=== PATIENT | male | born 1950 | race African-American/Black ===

== ENCOUNTER 2017-03-10 12:27 | Emergency (ER) | payer MEDICAID, OTHER ==
[~2017-03-10] VITALS: Ht 172.7 cm; Wt 80.0 kg
[2017-03-10 14:10] LABS: BASOPHILS % 0.7 % (0.0-2.0); EOSINOPHILS % 1.3 % (0.0-5.0); HEMATOCRIT. 30.6 % (42.0-52.0); LYMPHOCYTES % 25.1 % (20.0-50.0); MEAN CORPUSCULAR HEMOGLOBIN 28.3 pg (28.0-32.0); MEAN CORPUSCULAR VOLUME 86.9 fL (80.0-94.0); MEAN PLATELET VOLUME 6.8 fl (7.4-10.4); MONOCYTES % 10.4 % (2.0-8.0); NEUTROPHILS % 62.5 % (40.0-76.0); PLATELET 203 x1000/uL (130-400); RED BLOOD CELL COUNT 3.52 mill/uL (4.7-6.1); RED CELL DISTRIBUTION WIDTH 15.1 % (11.6-14.6)
[2017-03-10 14:23] LABS: CARBON DIOXIDE 26 mEq/L (21-32); CHLORIDE 110 mEq/L (98-107); TROPONIN I < 0.02 ng/mL (0.00-0.04)
[2017-03-10 14:55] LABS: *AMPHETAMINES SCREEN URINE NEGATIVE (NEGATIVE); *BARBITURATES SCREEN URINE NEGATIVE (NEGATIVE); *BENZODIAZEPINES SCREEN URINE NEGATIVE (NEGATIVE); *COCAINE SCREEN URINE NEGATIVE (NEGATIVE); CANNABINOID URINE SCREEN NEGATIVE (NEGATIVE); METHADONE URINE SCREEN NEGATIVE (NEGATIVE); OPIATES URINE SCREEN NEGATIVE (NEGATIVE); PHENCYCLIDINE URINE SCREEN NEGATIVE (NEGATIVE)
[2017-03-10 14:57] LABS: INR 1.1; PROTHROMBIN TIME 10.9 sec
[2017-03-10 17:12] VITALS: BP 132/77
== END 2017-03-10 17:14 | disposition home or self-care (01) ==
LOC: EDBD 12:48 → ER 12:48
DX: R07.9 Chest pain, unspecified (principal)
CPT/HCPCS: 36415; 71010; 80048; 80305; 83880; 84484; 85025; 85610; 93005; 99285; Z7610

== ENCOUNTER 2017-06-16 11:01 | Emergency (ER) | payer MEDICARE, MEDICAID ==
[~2017-06-16] VITALS: Ht 170.2 cm; Wt 76.0 kg
[2017-06-16] MEDS ORDERED: ONDANSETRON HCL 4MG/2ML VIAL IV ONE (12:00)
[2017-06-16] MEDS ORDERED: SODIUM CHLORIDE 0.9% 1,000 ML IV ONE (12:00)
[2017-06-16] MEDS ORDERED: FAMOTIDINE 20MG/2ML VIAL IV ONE (12:00)
[2017-06-16 12:36] LABS: BASOPHILS % 0.5 % (0.0-2.0); EOSINOPHILS % 1.5 % (0.0-5.0); HEMATOCRIT. 32.3 % (42.0-52.0); HEMOGLOBIN. 10.5 g/dL (14.0-18.0); MEAN CORPUSCULAR HEMOGLOBIN 29.5 pg (28.0-32.0); MEAN CORPUSCULAR VOLUME 90.4 fL (80.0-94.0); MEAN PLATELET VOLUME 7.2 fl (7.4-10.4); MONOCYTES % 14.3 % (2.0-8.0); NEUTROPHILS % 67.7 % (40.0-76.0); PLATELET 210 x1000/uL (130-400); RED BLOOD CELL COUNT 3.57 mill/uL (4.7-6.1); RED CELL DISTRIBUTION WIDTH 13.7 % (11.6-14.6)
[2017-06-16 12:39] LABS: CHLORIDE 109 mEq/L (98-107)
[2017-06-16 12:45] LABS: CARBON DIOXIDE 28 mEq/L (21-32)
[2017-06-16 14:40] LABS: CLARITY URINE CLOUDY (CLEAR); COLOR URINE YELLOW (YELLOW); GLUCOSE URINE NEGATIVE (NEGATIVE); KETONES URINE NEGATIVE (NEGATIVE); LEUKOCYTE ESTERASE URINE 2+ (NEGATIVE); NITRITE URINE NEGATIVE (NEGATIVE); OCCULT BLOOD URINE NEGATIVE (NEGATIVE); PH URINE 6.5 (4.5-8.0); PROTEIN URINE TRACE (NEGATIVE)
[2017-06-17 10:40] VITALS: BP 136/53
== END 2017-06-17 10:40 | disposition home or self-care (01) ==
LOC: ER 11:12
DX: E86.0 Dehydration (principal); I10 Essential (primary) hypertension; G80.9 Cerebral palsy, unspecified; R19.7 Diarrhea, unspecified; N39.0 Urinary tract infection, site not specified; R11.0 Nausea; Z88.0 Allergy status to penicillin
CPT/HCPCS: 36415; 80048; 81001; 85025; 87077; 87086; 87186; 96361; 96374; 96375; 99284; J2405; J3490; J7030

== ENCOUNTER 2018-08-12 11:03 | Inpatient (IN) | payer MEDICARE, MEDICAID ==
[~2018-08-12] VITALS: Ht 167.6 cm; Wt 63.5 kg
[2018-08-12 13:20] LABS: BASOPHILS % 0.9 % (0.0-2.0); EOSINOPHILS % 4.2 % (0.0-5.0); HEMOGLOBIN. 10.9 g/dL (14.0-18.0); MEAN CORPUSCULAR HEMOGLOBIN 29.5 pg (28.0-32.0); MEAN PLATELET VOLUME 7.1 fl (7.4-10.4); MONOCYTES % 12.1 % (2.0-8.0); NEUTROPHILS % 63.8 % (40.0-76.0); PLATELET 307 x1000/uL (130-400); RED CELL DISTRIBUTION WIDTH 14.4 % (11.6-14.6)
[2018-08-12 13:28] LABS: CHLORIDE 110 mEq/L (98-107)
[2018-08-12 14:00] VITALS: BP 151/72
[2018-08-12] MEDS ORDERED: CLONIDINE 0.1MG TABLET PO PRN (15:15)
[2018-08-12] MEDS ORDERED: IPRATROPIUM/ALBUTEROL 0.5-3(2.5)MG/3ML NEB HHN PRN (15:15)
[2018-08-12] MEDS ORDERED: ONDANSETRON HCL 4MG/2ML INJ IV PRN (15:15)
[2018-08-12 16:00] VITALS: BP 122/49
[2018-08-12] MEDS ORDERED: PNEUMOCOCCAL 23-VAL P-SAC VAC 0.5 ML IM ONE (18:00)
[2018-08-12 19:53] VITALS: BP 142/70
[2018-08-12] MEDS: AMLODIPINE 5MG TABLET PO SCH (20:37)
[2018-08-12] MEDS: METOPROLOL TARTRATE 50MG TABLET PO SCH (20:37)
[2018-08-12 21:20] LABS: CLARITY URINE CLOUDY (CLEAR); COLOR URINE YELLOW (YELLOW); KETONES URINE NEGATIVE (NEGATIVE); LEUKOCYTE ESTERASE URINE 2+ (NEGATIVE); NITRITE URINE POSITIVE (NEGATIVE); OCCULT BLOOD URINE NEGATIVE (NEGATIVE); PROTEIN URINE NEGATIVE (NEGATIVE); SPECIFIC GRAVITY URINE 1.018 (1.005-1.030)
[2018-08-12 21:34] LABS: *AMPHETAMINES SCREEN URINE NEGATIVE (NEGATIVE); *BARBITURATES SCREEN URINE NEGATIVE (NEGATIVE); *BENZODIAZEPINES SCREEN URINE NEGATIVE (NEGATIVE); *COCAINE SCREEN URINE NEGATIVE (NEGATIVE); METHADONE URINE SCREEN NEGATIVE (NEGATIVE); OPIATES URINE SCREEN NEGATIVE (NEGATIVE)
[2018-08-12 21:35] LABS: CANNABINOID URINE SCREEN NEGATIVE (NEGATIVE); PHENCYCLIDINE URINE SCREEN NEGATIVE (NEGATIVE)
[2018-08-12] MEDS: ACETAMINOPHEN 325MG TABLET PO PRN (22:46)
[2018-08-13 00:09] VITALS: BP 117/51
[2018-08-13 04:00] VITALS: BP 104/50
[2018-08-13 07:25] LABS: CHLORIDE 106 mEq/L (98-107)
[2018-08-13 07:29] LABS: BASOPHILS % 0.8 % (0.0-2.0); EOSINOPHILS % 6.6 % (0.0-5.0); HEMATOCRIT. 31.3 % (42.0-52.0); LYMPHOCYTES % 31.6 % (20.0-50.0); MEAN CORPUSCULAR HEMOGLOBIN 29.5 pg (28.0-32.0); MEAN PLATELET VOLUME 7.2 fl (7.4-10.4); MONOCYTES % 13.9 % (2.0-8.0); NEUTROPHILS % 47.1 % (40.0-76.0); PLATELET 296 x1000/uL (130-400); RED CELL DISTRIBUTION WIDTH 14.4 % (11.6-14.6)
[2018-08-13 08:00] VITALS: BP 120/53
[2018-08-13] MEDS: METOPROLOL TARTRATE 50MG TABLET PO SCH ×2 (09:59→20:21)
[2018-08-13] MEDS: ASPIRIN 81MG TABLET PO SCH (09:59)
[2018-08-13] MEDS: AMLODIPINE 5MG TABLET PO SCH ×2 (09:59→20:22)
[2018-08-13] MEDS: ENOXAPARIN 40MG/0.4ML SYR SUBCUT SCH (10:00)
[2018-08-13 12:00] VITALS: BP 123/52
[2018-08-13] MEDS: LEVOFLOXACIN 500MG PREMIX 100 ML IV SCH (13:31)
[2018-08-13] MEDS: ACETAMINOPHEN 325MG TABLET PO PRN ×2 (13:33→20:31)
[2018-08-13 15:30] LABS: T4 FREE 0.85 ng/dL (0.76-1.46)
[2018-08-13 15:31] LABS: CREATINE KINASE MB FRACTION 1.9 ng/mL (0.5-3.6)
[2018-08-13 16:00] VITALS: BP 113/58
[2018-08-13 20:00] VITALS: BP 107/42
[2018-08-13 23:58] LABS: CREATINE KINASE 84 IU/L (39-308)
[2018-08-13 23:59] LABS: CREATINE KINASE MB FRACTION 1.8 ng/mL (0.5-3.6)
[2018-08-14] VITALS (7 sets, daily range): BP systolic 115–139; BP diastolic 56–66
[2018-08-14 07:41] LABS: BASOPHILS % 0.6 % (0.0-2.0); EOSINOPHILS % 4.8 % (0.0-5.0); HEMATOCRIT. 32.4 % (42.0-52.0); HEMOGLOBIN. 10.4 g/dL (14.0-18.0); LYMPHOCYTES % 24.2 % (20.0-50.0); MEAN CORPUSCULAR HEMOGLOBIN 29.5 pg (28.0-32.0); MEAN CORPUSCULAR VOLUME 91.8 fL (80.0-94.0); MEAN PLATELET VOLUME 7.4 fl (7.4-10.4); MONOCYTES % 14.3 % (2.0-8.0); NEUTROPHILS % 56.1 % (40.0-76.0); PLATELET 283 x1000/uL (130-400); RED BLOOD CELL COUNT 3.52 mill/uL (4.7-6.1); RED CELL DISTRIBUTION WIDTH 13.9 % (11.6-14.6)
[2018-08-14 07:55] LABS: CHLORIDE 109 mEq/L (98-107)
[2018-08-14 08:12] LABS: CREATINE KINASE 77 IU/L (39-308)
[2018-08-14 08:19] LABS: CREATINE KINASE MB FRACTION 1.7 ng/mL (0.5-3.6)
[2018-08-14] MEDS ORDERED: REGADENOSON 0.4 MG/5 ML IV NR (08:45)
[2018-08-14] MEDS: AMLODIPINE 5MG TABLET PO SCH ×2 (09:00→20:40)
[2018-08-14] MEDS: ENOXAPARIN 40MG/0.4ML SYR SUBCUT SCH (09:00)
[2018-08-14] MEDS: METOPROLOL TARTRATE 50MG TABLET PO SCH ×2 (09:00→20:39)
[2018-08-14] MEDS: ASPIRIN 81MG TABLET PO SCH (09:00)
[2018-08-14] MEDS: LEVOFLOXACIN 500MG PREMIX 100 ML IV SCH (10:00)
[2018-08-14] MEDS: ACETAMINOPHEN 325MG TABLET PO PRN (14:24)
== END 2018-08-14 22:16 | disposition home or self-care (01) | DRG 463 ==
LOC: ER 11:03 → 5WST 12:58 → EDBEDREQ 13:02 → ENRESERV 13:12 → 5WST 14:30
PROVIDERS: ADMIT Internal Medicine; ATTEND Internal Medicine
DX: N39.0 Urinary tract infection, site not specified (principal); E87.8 Other disorders of electrolyte and fluid balance, not elsewhere classified; M94.0 Chondrocostal junction syndrome [Tietze]; D64.9 Anemia, unspecified; I10 Essential (primary) hypertension; G80.9 Cerebral palsy, unspecified; L90.5 Scar conditions and fibrosis of skin; E78.5 Hyperlipidemia, unspecified; J45.909 Unspecified asthma, uncomplicated; L81.6 Other disorders of diminished melanin formation; Z86.73 Personal history of transient ischemic attack (TIA), and cerebral infarction without residual deficits; Z88.0 Allergy status to penicillin
CPT/HCPCS: 36415; 71045; 78582; 80048; 80061; 80305; 82550; 82553; 83036; 83880; 84134; 84439; 84443; 84484; 85379; 87077; 87186; 90732; 93005; 93306; 93970; 96374; 97162; 99285; A6261; A9558; J1650; J1956; J7050